=== PATIENT | female | born 1960 | race Two or more races ===

== ENCOUNTER 2025-03-18 23:08 | Emergency (ER) | payer OTHER ==
[~2025-03-18] VITALS: Ht 147.3 cm; Wt 63.5 kg
[2025-03-18] MEDS ORDERED: ATORVASTATIN CA40 MG PO (23:32)
[2025-03-18] MEDS ORDERED: VAZALORE81 MG PO (23:32)
[2025-03-18] MEDS ORDERED: LEVOXYL50 MCG PO (23:32)
[2025-03-18 23:33] VITALS: O2SAT 98
[2025-03-19] MEDS ORDERED: NIFEDIPINE 10 MG CAPSULE PO STA (01:43)
[2025-03-19] MEDS ORDERED: ACETAMINOPHEN 500 MG GEL..CAP PO STA (01:44)
[2025-03-19] MEDS ORDERED: NIFEDIPINE 10 MG CAPSULE PO ONE (02:01)
[2025-03-19] MEDS ORDERED: ACETAMINOPHEN 500 MG GEL..CAP PO ONE (02:02)
[2025-03-19 03:05] VITALS: BP 150/72
[2025-03-19] MEDS ORDERED: NIFEDIPINE ER30 M1 PO (03:29)
== END 2025-03-19 05:01 | disposition home or self-care (01) ==
LOC: ER 23:15
DX: I10 Essential (primary) hypertension (principal)